=== PATIENT | female | born 1980 | race Caucasian/White ===

== ENCOUNTER → 2020-09-05 08:00 | Outpatient (BNVA) | payer OTHER, SELFPAY | PROVIDERS: PCP Internal Medicine; Referring Provider Internal Medicine; Visit Provider Student in an Organized Health Care Education/Training Program | DX: M06.00 Rheumatoid arthritis without rheumatoid factor, unspecified site (principal); M79.7 Fibromyalgia | CPT/HCPCS: 99214 ==

== ENCOUNTER → 2020-12-12 07:26 | Outpatient (BNVA) | payer OTHER, SELFPAY | PROVIDERS: PCP Internal Medicine; Visit Provider Student in an Organized Health Care Education/Training Program | DX: M06.00 Rheumatoid arthritis without rheumatoid factor, unspecified site (principal); M79.7 Fibromyalgia | CPT/HCPCS: 99212 ==

== ENCOUNTER → 2021-02-27 07:30 | Outpatient (BNVA) | payer OTHER, SELFPAY | PROVIDERS: PCP Internal Medicine; Visit Provider Student in an Organized Health Care Education/Training Program | DX: M06.00 Rheumatoid arthritis without rheumatoid factor, unspecified site (principal); M79.7 Fibromyalgia | CPT/HCPCS: 99212 ==

== ENCOUNTER → 2021-06-05 07:27 | Outpatient (BNVA) | payer OTHER, SELFPAY | PROVIDERS: Visit Provider Student in an Organized Health Care Education/Training Program | DX: M06.00 Rheumatoid arthritis without rheumatoid factor, unspecified site (principal); M79.7 Fibromyalgia | CPT/HCPCS: 99212 ==

== ENCOUNTER → 2021-12-07 08:40 | Outpatient (BNVA) | payer OTHER, SELFPAY | PROVIDERS: Visit Provider Nurse Practitioner Family ==

== ENCOUNTER → 2022-03-12 08:07 | Outpatient (BNVA) | payer OTHER, SELFPAY | PROVIDERS: Visit Provider Nurse Practitioner Family | DX: Z13.89 Encounter for screening for other disorder (principal) ==

== ENCOUNTER → 2023-03-30 13:07 | Outpatient (BNVA) | payer OTHER, MEDICAID, SELFPAY | PROVIDERS: Visit Provider Nurse Practitioner Family ==

== ENCOUNTER 2023-08-11 07:44 | Outpatient (AMB) | payer OTHER, MEDICAID, SELFPAY ==
[2023-08-11 07:47] VITALS: BP 108/72; PULSE 64; TEMP 36.7; O2SAT 99; BMI 30.5
--- NOTE | 2023-08-11 07:47 | A.OFFVIS_ITS ---
Intake Vital Signs 08/11/23 07:47 Height 5 ft 4 in Weight 177 lb 14.609 oz BMI 30.5 BP 108/72 Blood Pressure Location Rt brachial Position Sitting Pulse 64 Pulse Source Pulse Oximeter Temp 98.1 F Temp Source Skin Pulse Oximetry (%) 99 Intake Visit Reasons: RA Intake Note: Pt seen today for RA follow up. Last seen by Colleen on 03/30/23. Reports no changes Health Plan Manager Required: No Accompanied by: Self / Same As Patient Allergies ceftriaxone Allergy (Intermediate, Verified 08/11/23 07:51) Facial Swelling Benziod Allergy (Intermediate, Uncoded 08/11/23 07:51) blisters Medication List - Last Reconciled 08/11/23 by Lindsey Garg MD acetaminophen (Tylenol Extra Strength) 1,000 mg PO Q6H PRN calcium carbonate-vitamin D3 500 mg-10 mcg (400 unit) (Calcium 500 + D) 1 tab PO DAILY cetirizine 10 mg PO DAILY cholecalciferol (vitamin D3) 50 mcg PO DAILY clindamycin phosphate 1% topical BID PRN docusate sodium 100 mg PO BID econazole 1% appl topical BID esomeprazole magnesium 40 mg PO BID gabapentin 800 mg PO BID glycopyrrolate 2 mg PO Q6-8H PRN ibuprofen 800 mg PO Q8H PRN magnesium 400 mg PO DAILY multivitamin 1 tab PO DAILY nystatin topical DAILY omeprazole 40 mg PO BID ondansetron 8 mg PO Q6-8H PRN pregabalin 150 mg PO BEDTIME pregabalin (Lyrica) 100 mg PO DAILY sarilumab (Kevzara) 200 mg (1.14 mL) subcut Q2W tizanidine 2 mg PO BEDTIME PRN tretinoin 0.05% topical BEDTIME HPI HPI Comments History of Present Illness Details 42yoF presents for follow-up of seronega tive rheumatoid arthritis and fibromyalgia. Last seen by Mily Pickard 04/05 On Kevzara and continues to tolerate this well. Patient denies any joint pain swelling or stiffness. No complaints today [facility] Medical History (Updated 08/11/23 @ 08:06 by Lindsey Garg MD) Fibromyalgia Seronegative rheumatoid arthritis Social History Alcohol intake: current Alcohol intake frequency: holidays/special occasions only Alcohol type: wine Patient Tobacco Use Status: Never used Tobacco e-Cigarette/Vaping Use: Never Used Current occupational status: employed Current occupation: [employer] ED Review of Systems Musc Denies arthralgias, Denies joint swelling and Denies stiffness Physical Exam Vital Signs: Last Vital Signs Temp 98.1 F 08/11/23 07:47 Pulse 64 08/11/23 07:47 BP 108/72 08/11/23 07:47 Pulse Ox 99 08/11/23 07:47 BMI result Body Mass Index 30.5 Const General: cooperative, healthy appearing and comfortable Nutritional Appearance: overweight Orientation/consciousness: patient oriented x3 Limitations: no limitations HEENT Head: Yes normocephalic and Yes atraumatic Mouth: moist mucous membranes Resp Effort & Inspection: normal respiratory effort and able to speak in complete sentences Auscultation: clear to auscultation bilaterally Cardio Rate: regular rate Rhythm: regular rhythm Heart sounds: S1 normal heart sound present GI Inspection: No distended Palpation (GI): Soft to palpation and nontender Skin General skin exam: no rashes or lesions noted Neuro General: patient oriented x3 Extrem Other: No active synovitis Normal nailfold capillaroscopy Assessment & Plan Assessment & Plan (1) Seronegative rheumatoid arthritis: Comment: Popeyezara: 04/2020 - Present Methotrexate-09/2017-12/2018- adverse side effects Humira- 11/2017-05/2018-effective but with injection site reaction Simponi - 04/2018- 06/2018- ineffective Xeljanz 04/2018-04/2020- ineffective Enbrel- 02/2018- 05/2018- injection site reaction Orencia-04/2020-05/2020-ineffective Code(s): M06.00 - Rheumatoid arthritis without rheumatoid factor, unspecified site Plan: Seronegative rheumatoid arthritis, patient initially presented with joint pain and elevated CRP and sed rate. X-rays and ultrasound of both hands were normal. ? MRI of left hand was normal in 2019, MRI was after patient had started treatment.? 2020 rheumatology note states that attempts were made to discontinue patient off of all biologics and monitor however her pain symptoms return full force and her sed rate and CRP became markedly elevated. Patient is in remission on Kevzara 200 mg every other week. Continue Kevzara 20 mg every other week Labs before next visit in 6 months (2) Fibromyalgia: Code(s): M79.7 - Fibromyalgia Plan: Patient with long-term sleep disturbance. She is on Lyrica 100 mg during the day, Lyrica 150 mg at night. Gabapentin 800 mg changed from TID to BID as patient taking this way at home. Continue p.r.n. tizanidine. Will discuss potentially reducing these meds next visit (3) Immunization counseling: Code(s): Z71.85 - Encounter for immunization safety counseling Plan: Inform patient that it is the fall and there is an increased number of respirato ry infections. Including COVID. Patient works as an technician inventory specialist and is aware of this, advised patient to try to maintain precautions as much as possible. Wearing a mask. Advised patient to get the flu vaccine for this season. Also inform patient that there might be a new COVID booster coming gout and she should would be eligible for this. Plan I spent 29 minutes reviewing patient's chart, evaluating patient, ordering diagnostic workup, counseling patient and documenting in the chart Orders: Orders Complete Blood Count Auto Diff 6 Months M06.00 - Rheumatoid arthritis without rheumatoid factor, unspecified site Comprehensive Met. Panel 6 Months M06.00 - Rheumatoid arthritis without rheumatoid factor, unspecified site C Reactive Protein 6 Months M06.00 - Rheumatoid arthritis without rheumatoid factor, unspecified site Erythrocyte Sedimentation Rate 6 Months M06.00 - Rheumatoid arthritis without rheumatoid factor, unspecified site T Spot TB 6 Months Z11.7 - Encounter for testing for latent tuberculosis infection Hepatitis A,B,C Profile 6 Months Z11.59 - Encounter for screening for other viral diseases Coding Level of Care Code Est Pt Level 4 (36609) Diagnoses Seronegative rheumatoid arthritis M06.00 Fibromyalgia M79.7 Immunization counseling Z71.85
== END 2023-08-11 08:02 | disposition home or self-care (01) ==
PROVIDERS: Visit Provider Student in an Organized Health Care Education/Training Program
DX: M06.00 Rheumatoid arthritis without rheumatoid factor, unspecified site (principal); M79.7 Fibromyalgia; Z71.85 Encounter for immunization safety counseling
CPT/HCPCS: 99214

== ENCOUNTER → 2023-08-11 07:44 | Outpatient (BNVA) | payer OTHER, MEDICAID, SELFPAY | PROVIDERS: Visit Provider Student in an Organized Health Care Education/Training Program ==

== ENCOUNTER 2024-03-12 07:32 | Outpatient (AMB) | payer OTHER, SELFPAY ==
[2024-03-12 07:40] VITALS: BP 122/68; PULSE 73; O2SAT 98; BMI 34.7
--- NOTE | 2024-03-12 07:40 | A.OFFVIS_ITS ---
Vital Signs 03/12/24 07:40 Height 5 ft 4 in Weight 202 lb 2.622 oz BMI 34.7 BP 122/68 Blood Pressure Location Rt brachial Position Sitting Pulse 73 Pulse Source Pulse Oximeter Pulse Oximetry (%) 98 Oxygen Delivery Method Room Air Intake Visit Reasons: RA Intake Note: Patient last seen 08/11/23 presents today for follow up and test results. Has [facility] specialty pharmacy Currently on ABX for sinus infection. Has not done injections in 5 months planning IVF Orthopedic Nurse Practitioner Required: No Accompanied by: Self / Same As Patient Allergies ceftriaxone Allergy (Intermediate, Verified 03/12/24 07:44) Facial Swelling Benziod Allergy (Intermediate, Uncoded 03/12/24 07:44) blisters Medication List - Last Reconciled 03/12/24 by Lindsey Garg MD acetaminophen (Tylenol Extra Strength) 1,000 mg PO Q6H PRN bupropion HCl SR 100 mg PO BID calcium carbonate-vitamin D3 500 mg-10 mcg (400 unit) (Calcium 500 + D) 1 tab PO DAILY cetirizine 10 mg PO DAILY cholecalciferol (vitamin D3) 50 mcg PO DAILY clindamycin phosphate 1% topical BID PRN docusate sodium 100 mg PO BID econazole 1% appl topical BID esomeprazole magnesium 40 mg PO BID gabapentin 800 mg PO BID glycopyrrolate 2 mg PO Q6-8H PRN hydroxyzine HCl 50 mg PO BEDTIME ibuprofen 800 mg PO Q8H PRN magnesium 400 mg PO DAILY multivitamin 1 tab PO DAILY nystatin topical DAILY omeprazole 40 mg PO BID ondansetron 8 mg PO Q6-8H PRN pregabalin 150 mg PO BEDTIME pregabalin (Lyrica) 100 mg PO DAILY sarilumab (Kevzara) 200 mg (1.14 mL) subcut Q2W tizanidine 2 mg PO BEDTIME PRN tretinoin 0.05% topical BEDTIME HPI Comments Details: 43yoF presents for follow-up of seronegative rheumatoid arthritis and fibromyalgia. Last seen by Mily Pickard 07/2023 Patient stopped her Kevzara about 4 months ago. She is in the process of trying to get again. They are planning to do IVF. Appointment was postponed. She is scheduled 04/2024. She stated that she is doing fairly well overall. She gets very rare flare-ups of joint pain. They happen about once or twice a month. She also states that his flare-up affecting her left eye that rapidly resolved eyedrops. She does not know the diagnosis of her eye condition. She noticed a tender lump in her left 4th finger that is tender to palpation. [facility] Medical History Fibromyalgia Seronegative rheumatoid arthritis Social History Alcohol intake: current Alcohol intake frequency: holidays/special occasions only Alcohol type: wine Patient Tobacco Use Status: Never used Tobacco e-Cigarette/Vaping Use: Never Used Current occupational status: employed Current occupation: [employer] ED Female Reproductive History Menstrual Number of Living Children: 3 Review of Systems Eyes Details: Redness Denies itchy eyes Musc Reports arthralgias, Reports joint swelling and Denies stiffness Aller/Immun Denies itchy eyes Physical Exam Vital Signs: Last Vital Signs Pulse 73 03/12/24 07:40 BP 122/68 03/12/24 07:40 Pulse Ox 98 03/12/24 07:40 Oxygen Delivery Method Room Air 03/12/24 07:40 BMI result Body Mass Index 34.7 Const General: cooperative, healthy appearing and comfortable Nutritional Appearance: overweight Orientation/consciousness: patient oriented x3 Limitations: no limitations HEENT Head: Yes normocephalic and Yes atraumatic Mouth: moist mucous membranes Eyes Other: Mild erythema of left eye conjunctiva Resp Effort & Inspection: normal respiratory effort and able to speak in complete sentences Auscultation: clear to auscultation bilaterally Cardio Rate: regular rate Rhythm: regular rhythm Heart sounds: S1 normal heart sound present GI Inspection: No distended Palpation (GI): Soft to palpation and nontender Skin General skin exam: no rashes or lesions noted Neuro General: patient oriented x3 Extrem Other: Mildly tender nodule on palmar aspect of left 4th finger No active synovitis otherwise Normal nailfold capillaroscopy Assessment & Plan Assessment & Plan (1) Seronegative rheumatoid arthritis: Comment: Angela: 04/2020 -self DC 10/2023 in preparation for IVF Methotrexate-09/2017-12/2018- adverse side effects Humira- 11/2017-05/2018-effective but with injection site reaction Simponi - 04/2018- 06/2018- ineffective Xeljanz 04/2018-04/2020- ineffective Enbrel- 02/2018- 05/2018- injection site reaction Orencia-04/2020-05/2020-ineffective Code(s): M06.00 - Rheumatoid arthritis without rheumatoid factor, unspecified site Category: Medical Plan: 43-year-old female with seronegative RA returns for follow-up. Patient self- discontinued her Kevzara 10/2023 in preparation for IVF. She has not started IVF yet. She has an appointment in April/2024. Since then she would have rare flare-ups, happening for twice a month rapidly resolved with Tylenol. Patient can proceed with IVF. Advised patient to call the office if she develops any signs suggesting an RA flare up Labs before next visit in 6 months (2) Fibromyalgia: Code(s): M79.7 - Fibromyalgia Category: Medical Plan: Patient has not picked up her gabapentin or Lyrica in a few months Symptoms seem fairly well controlled at this time. Continue to monitor Plan I spent 25 minutes reviewing patient's chart, evaluating patient, ordering diagnostic workup, counseling patient and documenting in the chart Orders: Orders Complete Blood Count Auto Diff 6 Months M06.00 - Rheumatoid arthritis without rheumatoid factor, unspecified site C Reactive Protein 6 Months M06.00 - Rheumatoid arthritis without rheumatoid factor, unspecified site Erythrocyte Sedimentation Rate 6 Months M06.00 - Rheumatoid arthritis without rheumatoid factor, unspecified site Comprehensive Met. Panel 6 Months M06.00 - Rheumatoid arthritis without rheumatoid factor, unspecified site Coding Level of Care Code Est Pt Level 4 (14078) Diagnoses Seronegative rheumatoid arthritis M06.00 Fibromyalgia M79.7
== END 2024-03-12 08:05 | disposition home or self-care (01) ==
PROVIDERS: PCP Internal Medicine; Visit Provider Student in an Organized Health Care Education/Training Program
DX: M06.00 Rheumatoid arthritis without rheumatoid factor, unspecified site (principal); M79.7 Fibromyalgia
CPT/HCPCS: 99214

== ENCOUNTER → 2024-03-12 07:32 | Outpatient (BNVA) | payer OTHER, SELFPAY | PROVIDERS: Visit Provider Student in an Organized Health Care Education/Training Program | DX: M06.00 Rheumatoid arthritis without rheumatoid factor, unspecified site (principal); M79.7 Fibromyalgia | CPT/HCPCS: 99212 ==